=== PATIENT | male | born 1945 | race African-American/Black ===

== ENCOUNTER 2018-03-03 13:52 | Inpatient (IN) | payer BC, MEDICARE ==
[2018-03-03 14:47] LABS: #Eosinphils 0.2 thou/uL (0.0-0.7); #Lymphocytes 1.4 thou/uL (1.20-3.40); #Monocytes 0.6 thou/uL (0.11-0.59); #Neutrophils 5.2 thou/uL (1.40-6.50); %Basophils 0.6 % (0.0-1.0); %Eosinophils 2.8 % (0.0-10.0); %Lymphocytes 18.4 % (21.0-51.0); %Monocytes 7.9 % (0.0-10.0); %Neutrophils 70.2 % (42.0-75.0); Hemoglobin 10.2 g/dL (14.0-18.0); Mean Corpuscular HGB CONC 31.5 g/dL (32.0-36.0); Mean Corpuscular Hemoglobin 26.9 pg (27.0-31.0); Mean Corpuscular Volume 85.3 fl (80.0-94.0); Platelet Count 219 thou/uL (130-400); RBC Distribution Width 14.9 % (11.5-14.5); Red Blood Cell (RBC) Count 3.78 mill/uL (4.70-6.10); White Blood Cell (WBC) Count 7.4 thou/uL (4.8-10.8)
--- NOTE | 2018-03-03 14:53 | RAD ---
PORTABLE CHEST: History: Chest pain. Comparison: 07-30-09 FINDINGS: Cardiomegaly with post op sternotomy change. There is vascular congestion. Interstitial prominence pereira ggests interstitial edema. Small effusions may be present. The right CP angle is not completely image d. IMPRESSION: Cardiomegaly with evidence of mild vascular congestion and interstitial edema. POS: [facility]
[2018-03-03 15:08] LABS: ALT (SGPT) 26 U/L (8-55); AST (SGOT) 19 U/L (5-34); Albumin 3.3 g/dL (3.4-4.8); Alkaline Phosphatase 139 U/L (40-150); Anion Gap 12 mmol/L (10-20); BUN (Urea Nitrogen) 53 mg/dL (8.4-25.7); Bilirubin, Total 0.5 mg/dL (0.2-1.2); Calc. Creatinine Clearance 0 mL/min (70-130); Calcium 8.8 mg/dL (7.8-10.44); Carbon Dioxide 25 mmol/L (23-31); Chloride 110 mmol/L (98-107); Estimated GFR-MDRD 30; Globulin 3.4 g/dL (2.4-3.5); Glucose 71 mg/dL (83-110); Potassium 5.8 mmol/L (3.5-5.1); Protein, Total 6.7 g/dL (5.8-8.1); Sodium 141 mmol/L (136-145)
[2018-03-03 15:13] LABS: CKMB 1.8 ng/mL (0-6.6)
[2018-03-03 15:16] LABS: Troponin I 1.505 ng/mL (< 0.028)
[2018-03-03] MEDS ORDERED: Zolpidem Tartrate 5 MG TAB PO PRN (15:41)
[2018-03-03] MEDS ORDERED: Nitroglycerin 0.4 MG TAB (25 Tab Bottle) SL PRN (15:45)
[2018-03-03 15:47] LABS: Bilirubin Negative (Negative); Blood, Urine Large (Negative); Clarity CLOUDY (Clear); Glucose, Urine (Dipstick) Negative (Negative); Leukocyte Small (Negative); Nitrite Negative (Negative); Protein, Urine (Dipstick) Trace mg/dL (Neg-Trace); Specific Gravity, Urine 1.007 (1.002-1.036); Urobilinogen 0.2 mg/dL (0.2-1.0)
[2018-03-03 15:49] LABS: Bacteria/HPF 3+ HPF (None Seen); Hyaline Casts/LPF 0-3 HYALINE CAST LPF (0-3 Hyaline); RBC/HPF GREATER THAN 50-TNTC HPF (0-3); Squamous Epithelial 0-3 HPF (0-3)
[2018-03-03] MEDS ORDERED: Nitroglycerin 50 MG/250 ML BOT 250 ML ONE (17:38)
--- NOTE | 2018-03-03 17:38 | HP ---
DATE OF ADMISSION: 03/03/2018 CHIEF COMPLAINT: Shortness of breath. HISTORY OF PRESENT ILLNESS: This is a 72-year-old male with a known past medical hi story of coronary artery disease and history of congestive heart failure. [facility] is a [facility]. He developed a sudden onset of shortness of breath which started yesterday associated with severe chest pain. The patient initially went to his primary care physician with his chest pain and had a troponin drawn over there which was 1.7. This was yesterday and because of the abnormal tropo mathieu levels, he was transferred to [facility]. The patient had a repeat troponin today it was 1.5, and the patient continued to have chest pain even with the nitro patch. The patient complains of pain of 7/10 intensity, is more intermittent and more on the right side of t he chest, associated with some nausea, but no vomiting. The patient denies having any abdominal pain , no nausea, no vomiting, no diarrhea, no constipation. No history of any sick contacts. The patien t had a chest x-ray in the ER, which showed evidence of venous congestion. He also had elevated BNP and all signs suggestive of congestive heart failure likely secondary to coronary artery disease, but patient being immobile and uses walker for ambulation. complaining of chest pain in the right preco rdium likely suggestive of pulmonary embolism. The patient was also noted to have worsening renal fu nctions today. PAST MEDICAL HISTORY: 1. Hypertension. 2. Dyslipidemia. 3. Smoking history. 4. History of type 2 diabetes mellitus, insulin-dependent. 5. History of chronic diastolic heart failure. 6. History of COPD. 7. History of diabetic peripheral neuropathy. 8. Chronic anemia. 9. Morbid obesity. PAST SURGICAL HISTORY: Lumbar laminectomy. The patient had a right below knee amputation. The allegra ent had CABG. FAMILY HISTORY: The patient has paternal family history of coronary artery disease and hypertension and also history of type 2 diabetes mellitus. SOCIAL HISTORY: The patient has a history of tobacco use. He drinks alcohol socially, but he quit d rinking since he was in the residential. ALLERGIES: No known drug allergies. REVIEW OF SYSTEMS: All 12 systems are reviewed with the patient thoroughly and found to be negative at this time, except the ones described in HPI . Constitutional: Weight loss or gain, sense of well -being, ability to conduct usual activities, exercise tolerance. Skin/Breast: Rash, itching, change s in hair growth or loss, nail changes, breast lumps, tenderness, swelling, nipple discharge. Eyes: Vision, double vision, tearing, blind spots, pain. ENT/Mouth: Headaches (location, time of onset, duration, precipitating factors), vertigo, lightheadedness, injury. Vision, double vision, tearing, b artemio spots, pain, nose bleeding, colds, obstruction, discharge, dental difficulties, gingival bleedin g, dentures, neck stiffness, pain, tenderness, masses in thyroid or other areas. Cardiovascular: Pr ecordial pain, substernal distress, palpitations, syncope, dyspnea on exertion, orthopnea, nocturnal paroxysmal dyspnea, edema, cyanosis, hypertension, heart murmurs, varicosities, phlebitis, claudicati on. Respiratory: Pain, shortness of breath, wheezing, stridor, cough, hemoptysis, fever or night sw eats. Gastrointestinal: Poor appetite, dysphagia, indigestion, abdominal pain, heartburn, eructatio n, nausea, vomiting, hematemesis, jaundice, constipation, or diarrhea, abnormal stools (dick-colored, tarry, bloody, greasy, foul smelling), flatulence, hemorrhoids, recent changes in bowel habits. Gen itourinary: Urgency, frequency, dysuria, nocturia, hematuria, polyuria, oliguria, unusual (or change in) color of urine, stones, hesitancy, change in size of stream, dribbling, acute retention or incon tinence, libido, potency. Musculoskeletal: Pain, swelling, redness or heat of muscles or joints, l imitation of motion, muscular weakness, atrophy, cramps. Neurologic/Psychiatric: Convulsions, para lyses, tremor, incoordination, paresthesias, difficulties with memory of speech, sensory or motor dis turbances, or muscular coordination (ataxia, tremor), emotional problems, anxiety, depression, previo us psychiatric care, unusual perceptions, hallucinations. Allergy/Immunologic: Skin rash, anemia, b leeding tendency, polydipsia, polyuria, intolerance to heat or cold. HOME MEDICATIONS: 1. Pantoprazole 40 mg p.o. daily. 2. Aspirin 325 mg p.o. daily. 3. Cilostazol 100 mg p.o. b.i.d. 4. Pantoprazole 40 mg p.o. daily. 5. Glyburide 5 mg p.o. daily. 6. Hydrocodone 5/325 mg p.o. daily. 7. Coreg 25 mg p.o. b.i.d. 8. Ferrous sulfate 325 mg p.o. b.i.d. 9. Gabapentin 300 mg p.o. b.i.d. 10. Hydralazine 50 mg p.o. b.i.d. 11. Isosorbide mononitrate 60 mg p.o. b.i.d. 12. Levemir 12 units subcutaneously b.i.d. 13. Nitroglycerin 0.4 mg sublingual every 5 minutes. 14. Simvastatin 40 mg p.o. at bedtime. PHYSICAL EXAMINATION: VITAL SIGNS: Blood pressures are 130/88, respiratory rate is 18, saturation 98% on 2 liters. GENERAL: The patient is seen lying in the bed supine, does not appear to be in acute distress at thi s time. He is alert and oriented x3. HEENT: Atraumatic, normocephalic. PERRLA. Extraocular movements are intact. Oral mucosa is pink a nd moist. CARDIOVASCULAR: S1, S2 normal. No murmurs, rubs or gallops. LUNGS: Bilateral air entry was reduced with wheezing and crackles noted in the lower bases, but othe rwise no acute signs of respiratory distress. ABDOMEN: Distended, nontender, no guarding, no rebound tenderness. Bowel sounds were normal. MUSCULOSKELETAL: The patient has pedal edema on the left lower extremity, 3+ edema with no calf ten derness, no joint tenderness, no joint swelling. Right lower extremity has a below knee amputation, but it looked normal with no evidence of any infection or cellulitis. JEWELRY SALES: Cranial nerve examination II-XII intact. No focal deficits were noted. SKIN: No cyanosis, no edema, no rash, no pallor. PSYCHIATRIC: No signs of suicidal ideation or signs of ana. LABORATORY DATA: WBC 7.4, hemoglobin is 10.2, hematocrit is 32.3, platelets is 219. His sodium is 141, potassium 5.8, chloride is 110, BUN 53, creatinine 2.54, blood sugar 71. Troponin is 1.505. A chest x-ray has been reviewed by me, it did show evidence of venous congestion suggestive of conges tive heart failure. ASSESSMENT: 1. Bsv-TG-gbygomj elevation myocardial infarction. 2. Acute diastolic congestive heart failure. 3. Acute hyperkalemia. 4. Acute kidney injury on chronic kidney disease. 5. Type 2 diabetes mellitus, insulin-dependent. 6. Morbid obesity. 7. Possible pulmonary embolism. 8. Acute hypoxic respiratory failure. PLAN: 1. The plan is to closely monitor this patient. The patient is pretty high risk. is FULL CODE. Fol grace discussion today, he has a worsening troponins today, it was 1.5. Either it could be secondar y to non-clearance because of the worsening renal functions or it could be a new IL. The patient's E KG was normal. This has been reviewed by me and the ER physician. The patient is on aspirin. We wi ll continue with aspirin and beta ashish of Coreg to 25 b.i.d. I advised the ER physician to call t he Cardiology as the patient is not able to recollect goals of Cardiology. As the patient is having ongoing chest pain at this time, will follow up with the Cardiology recommendations. We will do a 2- D echo to look for any evidence of wall motion abnormality. We will start the patient on Lovenox 1 m g/kg, as the patient has worsening renal functions. 2. The patient has persistent chest pain, which is more on the right precordium. Need to rule out a ny evidence of pulmonary embolism as the patient has immobile status. We will do ultrasound of the l eft lower extremity to look for any evidence of a DVT contributing to the pulmonary embolism. 3. The patient has hyperkalemia likely from worsening renal functions. We will avoid XAVIER inhibitor at this time. We will treat with Kayexalate 30 grams p.o. We will consult Nephrology at this time. 4. Type 2 diabetes mellitus. The patient has worsening renal function, so we will hold off on the g lipizide at this time and will continue the patient on Levemir and sliding scale insulin to keep the blood sugars 140-180. 5. Code status has been discussed with the patient and he wants to remain as a FULL CODE at this danny e and discussed all the events of CPR and intubation and I spent 25 minutes with this patient regardi ng the code status, but at this point he wants to be a FULL CODE. I spent 75 minutes with this patie nt of this one hour of critical care time.
--- NOTE | 2018-03-03 17:54 | ULT ---
LEFT LOWER EXTREMITY VENOUS DOPPLER 03/03/18 HISTORY: Left lower extremity swelling. COMPARISON: Doppler 2013. TECHNIQUE: Real time corley scale color doppler and spectral analysis of the left lower extremity venous system wa s performed. the common femoral, femoral, proximal portion of the greater saphenous and deep femoral vein as well as the popliteal and posterior tibial veins were interrogated. Normal flow, augmentation and compression. IMPRESSION: No deep venous thrombosis. POS: [facility]
[2018-03-03] MEDS ORDERED: Acetaminophen 325 MG TAB PO PRN (18:44)
[2018-03-03] MEDS ORDERED: HumaLOG 300 UNITS/3 ML VIAL SC PRN ×2 (18:44)
[2018-03-03] MEDS ORDERED: HYDROcodone/Acetaminophen 5/325 mg Tablet PO PRN (18:44)
[2018-03-03] MEDS ORDERED: Dextrose 5% in Water 1,000 ML IV PRN (18:44)
[2018-03-03] MEDS ORDERED: Ondansetron ODT 4 MG TAB PO PRN (18:44)
[2018-03-03] MEDS ORDERED: Dextrose 50% Abboject 50 ML SYRINGE SLOW IVP PRN (18:44)
[2018-03-03 18:52] LABS: Critical Call Chem Troponin I RESULT DECREASING; Troponin I 1.475 ng/mL (< 0.028)
[2018-03-03] MEDS: Mometasone/Formoterol 120 PUFF INHALER INH SCH (19:26)
[2018-03-03 19:30] LABS: Critical Call Chem Troponin I RESULT DECREASING; Troponin I 1.466 ng/mL (< 0.028)
[2018-03-03] MEDS ORDERED: Non-Formulary Item 1 EACH (Levemir Flexpen [Levemir Flexpen] 12 UNIT) SC SCH (21:00)
[2018-03-03] MEDS ORDERED: Carvedilol 25 MG TAB PO SCH (21:00)
[2018-03-03] MEDS: Gabapentin 300 MG CAP PO SCH (21:04)
[2018-03-03] MEDS: hydrALAZINE 25 MG TAB PO SCH (21:07)
[2018-03-03] MEDS: Tamsulosin HCl 0.4 MG CAP PO SCH (21:07)
[2018-03-03] MEDS: Famotidine 20 MG TAB PO SCH (21:07)
[2018-03-03] MEDS: Nitroglycerin 2% Ointment 1 INCH/1 GM Packet TOP SCH (21:08)
[2018-03-03] MEDS: Atorvastatin Calcium 20 MG TAB PO SCH (21:08)
[2018-03-03] MEDS: Enoxaparin Sodium 80 MG/0.8 ML SYRINGE SC SCH (21:08)
[2018-03-03] MEDS: Carvedilol 25 MG TAB PO SCH (21:08)
[2018-03-03 21:32] LABS: Troponin I 1.486 ng/mL (< 0.028)
[2018-03-03] MEDS: Insulin Glargine 12 UNITS in Pre-Filled Syringe 1 EACH SC SCH (22:03)
--- NOTE | 2018-03-03 22:38 | CON ---
DATE OF CONSULT/CRITICAL CARE NOTE: 03/03/18 Time on it: 40 minutes. HISTORY OF PRESENT ILLNESS: The patient is a 72-year-old gentleman who presented with right-sided chest discomfort. The patient has a long history of coronary artery disease and peripheral vascular disease. The patient is status post coronary catheterization The patient is status post coronary bypass graft surgery in 2008. He had a saphenous vein graft placed to the ramus saphenous vein graft to the proximal OM and the distal OM. The PDA was not bypassable. The patient also has a history of peripheral vascular disease. He has undergone a right AKA. The patient states that he has been having right-sided chest discomfort for the past several weeks. This chest discomfort was relieved by sublingual nitroglycerin. Today, the patient took several nitroglycerin tablets without relief of his chest pain. The patient denies having any present chest discomfort. PAST MEDICAL HISTORY: 1. Coronary artery disease. 2. Hypertension. 3. Diabetes mellitus. PAST SURGICAL HISTORY: He has had coronary artery bypass surgery and back surgery. SOCIAL HISTORY: He is a nonsmoker. ALLERGIES: No known drug allergies. MEDICATIONS ON ADMISSION: See nursing list. PHYSICAL EXAMINATION: GENERAL: This is an ill-appearing gentleman with a blood pressure 140/70. NECK: Showed no jugular venous distention. LUNGS: Clear to auscultation. HEART: Regular rate and rhythm, normal S1, S2 with no murmurs. ABDOMEN: Distended. EXTREMITIES: He is status post right BKA. LABORATORY: Sodium 141, potassium 5.8, chloride 110, bicarbonate 25, BUN 53, creatinine 2.54, tropon in 1.5. BNP was 3417. His white blood count 7.4, hemoglobin 10.2, hematocrit 32.3, platelets are 21 9. His EKG reveals normal sinus rhythm with a prolonged first degree AV block, right bundle branch b lock and left anterior fascicular block. IMPRESSION: 1. Unstable angina. 2. Possible recent myocardial infarction. 3. Diabetes mellitus. 4. Hypertension. 5. Peripheral vascular disease. 6. History of coronary bypass surgery. This gentleman presents with right-sided chest pain that respond to nitroglycerin. He has an elevate d troponin level with a normal CPK MB may have suffered a previous myocardial infarction. The patien t will be monitored in the ICU, he will treated with IV nitroglycerin. The patient has evidence of h ematuria so his aspirin is being held. Would slowly decrease the dose of his beta ashish with his s evere conduction disease. The patient's prognosis is guarded. We will follow this patient with you through his hospitalization.
[2018-03-04 04:11] LABS: #Eosinphils 0.2 thou/uL (0.0-0.7); #Lymphocytes 1.4 thou/uL (1.20-3.40); #Monocytes 0.5 thou/uL (0.11-0.59); #Neutrophils 4.8 thou/uL (1.40-6.50); %Basophils 0.1 % (0.0-1.0); %Eosinophils 3.2 % (0.0-10.0); %Lymphocytes 20.2 % (21.0-51.0); %Monocytes 7.8 % (0.0-10.0); %Neutrophils 68.9 % (42.0-75.0); Hemoglobin 9.3 g/dL (14.0-18.0); Mean Corpuscular HGB CONC 31.4 g/dL (32.0-36.0); Mean Corpuscular Hemoglobin 26.7 pg (27.0-31.0); Mean Corpuscular Volume 85.1 fl (80.0-94.0); Mean Platelet Volume 9.1 fL (7.4-10.4); Platelet Count 223 thou/uL (130-400); RBC Distribution Width 14.9 % (11.5-14.5); Red Blood Cell (RBC) Count 3.47 mill/uL (4.70-6.10)
[2018-03-04 04:30] LABS: Anion Gap 10 mmol/L (10-20); BUN (Urea Nitrogen) 52 mg/dL (8.4-25.7); Calc. Creatinine Clearance 39 mL/min (70-130); Calcium 8.4 mg/dL (7.8-10.44); Carbon Dioxide 24 mmol/L (23-31); Cardiac Risk 3.9 (Less than 4.5); Chloride 110 mmol/L (98-107); Cholesterol 117 mg/dl (< 200 Desired); Estimated GFR-MDRD 34; Glucose 100 mg/dL (83-110); HDL Cholesterol 30 mg/dL (>60 Neg Risk); LDL Cholesterol, Calculated 69 mg/dL; Potassium 4.8 mmol/L (3.5-5.1); Sodium 139 mmol/L (136-145); Triglycerides 88 mg/dL (Less than 150)
[2018-03-04] MEDS: Nitroglycerin 2% Ointment 1 INCH/1 GM Packet TOP SCH ×3 (05:13→21:25)
[2018-03-04] MEDS: Furosemide 20 MG/2 ML VIAL SLOW IVP SCH ×2 (05:15→15:22)
[2018-03-04] MEDS: hydrALAZINE 25 MG TAB PO SCH ×2 (07:41→21:25)
[2018-03-04] MEDS: Gabapentin 300 MG CAP PO SCH ×2 (07:41→21:23)
[2018-03-04] MEDS: Aspirin 325 MG TAB PO SCH (07:41)
[2018-03-04] MEDS: Ferrous Sulfate 325 MG TAB PO SCH ×2 (07:41→17:48)
[2018-03-04] MEDS: Carvedilol 25 MG TAB PO SCH ×2 (07:42→21:23)
[2018-03-04] MEDS: Enoxaparin Sodium 80 MG/0.8 ML SYRINGE SC SCH ×2 (07:44→21:23)
[2018-03-04] MEDS: Mometasone/Formoterol 120 PUFF INHALER INH SCH ×2 (07:50→22:10)
[2018-03-04 11:02] VITALS: BMI 32.1
[2018-03-04] MEDS: Insulin Glargine 12 UNITS in Pre-Filled Syringe 1 EACH SC SCH ×2 (11:41→21:30)
--- NOTE | 2018-03-04 12:34 | CON ---
DATE OF CONSULTATION: 03/04/2018 HISTORY OF PRESENT ILLNESS: This is a 72-year-old gentleman that I have evaluated previously for per ipheral vascular disease. He was admitted at this time with chest pain, elevated troponin, elevated BNP, suggesting PR, and congestive heart failure. His symptoms began yesterday and he was admitted y esterday evening. He states that he has been in the snf for several years. Although, he do es have an artificial limb that he does wear, he does not ambulate with it, but just uses it for contreras sferring from bed to chair. PAST MEDICAL HISTORY: Includes, hypertension, dyslipidemia, diabetes mellitus, heart disease, COPD, chronic anemia, and chronic kidney disease stage 4. PAST SURGICAL HISTORY: Includes lumbar laminectomy, right ueypr-aog-lvls amputation, coronary bypass grafting with incomplete right revascularization after reviewing those surgical notes. The patient also had a stent placement in his right external iliac artery and his left superficial fe moral artery. He has known single vessel runoff in his left leg via the peroneal artery. Prior to s tenting the left superficial femoral artery, it was completely occluded. PHYSICAL EXAMINATION: GENERAL: The patient is resting comfortably in bed with no complaints. LUNGS: Clear to auscultation anteriorly. CARDIAC: Exam reveals a regular rate and rhythm. No murmurs. ABDOMEN: Obese, nontender. EXTREMITIES: He has palpable femoral pulses bilaterally. He has a well-healed right BKA stump with no breakdown. Left leg has no popliteal or pedal pulses by exam. He has no skin breakdown in his le ft foot that I can appreciate. PLAN: At this time, the patient will probably be treated medically given his very poor coronary targ ets at the time of bypass about 9 years ago. He may be in atrial flutter with a controlled rate and has had some bradycardia and this will be addressed by Cardiology. In regards to his peripheral vasc ular disease, no intervention is recommended at this time.
--- NOTE | 2018-03-04 13:42 | CON ---
DATE OF CONSULTATION: 03/04/2018 CONSULTING PHYSICIAN: [facility] REASON FOR CONSULTATION: ICU protocol. HISTORY OF PRESENT ILLNESS: This is a 72-year-old male who presented yesterday with intractable ches t pain consistent with unstable angina. He also had congestive heart failure. He was then placed in the ICU, has been seen by both Cardiology and Cardiovascular Surgery. He has significantly elevated BNP and a slightly elevated troponin level. PAST MEDICAL HISTORY: 1. Remarkable for coronary artery disease. 2. Hypertension. 3. Diabetes mellitus. 4. Peripheral vascular disease. PAST SURGICAL HISTORY: 1. He has had a right bpuxs-ysq-bjhb amputation. 2. Back surgery. 3. Coronary bypass grafting surgery. FAMILY MEDICAL HISTORY: Remarkable for coronary artery disease, hypertension, type 2 diabetes mellit us. SOCIAL HISTORY: Quit smoking about 7 years ago. He lives in a residential since, therefore last 4 to 5 years because he has no one at home to take care of him, used to drink alcohol, has never used i llicit drugs. ALLERGIES: None. MEDICATIONS PRIOR TO ADMISSION: Albuterol metered-dose inhaler as needed, omeprazole 40 mg daily, fl uticasone nasal spray 2 squirts each nostril twice daily, fluoxetine 60 mg daily, cholecalciferol 100 0 units daily, calcium carbonate with vitamin D3 one tablet daily, Rocaltrol 0.25 mcg daily, aspirin 81 mg daily, Coreg 25 mg b.i.d., Neurontin 300 mg b.i.d., hydralazine 50 mg t.i.d., tamsulosin 0.4 mg nightly, simvastatin 40 mg nightly, nitroglycerin as needed sublingually, Levemir insulin 20 units s ubcu b.i.d., isosorbide 60 mg daily. PHYSICAL EXAMINATION: VITAL SIGNS: Pulse 63, blood pressure 159/63, O2 sat 100%, respiratory rate 14, temperature 98.3. GENERAL: He is an elderly white male in no acute distress. HEENT: Unremarkable. NECK: No JVD, no carotid bruits. LUNGS: A few crackles in both bases. CARDIAC: S1, S2 regular, without murmur. ABDOMEN: Soft, nontender, nondistended. EXTREMITIES: Right poewt-ilt-mwwm amputation. LABORATORY DATA AND X-RAY FINDINGS: Sodium 139, potassium 4.8, chloride 110, CO2 of 24, BUN 52, crea tinine 2.3, glucose 100. BNP 3000. White blood cell count 7, hematocrit 29.5, platelet count 223. Chest x-ray demonstrates cardiomegaly, bilateral infiltrative changes, perhaps left effusion. The an gle was obscured by the heart size. ASSESSMENT: 1. Unstable angina. 2. Coronary artery disease. 3. Congestive heart failure. PLAN: The patient is on no drips that would necessitate him being in the ICU. He can be moved out t o telemetry. Agree with current management. Pulmonary will be available as needed for issues.
--- NOTE | 2018-03-04 16:02 | PDOC.PN ---
- Subjective Encounter Start Date: 03/04/18 Encounter Start Time: 14:00 Anusha is seen today, alert and oriented. He is here with Chest pain/ SOB with elevated Trop. - Objective Resuscitation Status: Resuscitation Status FULL:Full Resuscitation MAR Reviewed: Yes Vital Signs & Weight: Vital Signs (12 hours) Temp Pulse Pulse Pulse Resp BP BP 03/04/18 11:00 98.2 F 03/04/18 09:00 69 86 150/51 H 135/65 03/04/18 08:00 98.3 F 63 17 03/04/18 07:00 98.3 F Pulse Ox Pulse Ox Pulse Ox 03/04/18 11:00 03/04/18 09:00 100 100 03/04/18 08:00 96 03/04/18 07:00 Weight Admit Weight 211 lb Weight 211 lb 2.4 oz Most Recent Monitor Data Heart Rate from ECG 70 NIBP 118/49 NIBP BP-Mean 85 Respiration from ECG 18 SpO2 100 I&O: 03/03/18 03/04/18 03/05/18 06:59 06:59 06:59 Intake Total 400 240 Output Total 1515 1380 Balance -1115 -1140 Result Diagrams: 03/04/18 03:33 03/04/18 03:33 Additional Labs: Accuchecks 03/03/18 20:44 POC Glucose 188 H Radiology Reviewed by me: Yes EKG Reviewed by me: Yes Phys Exam - Physical Examination HEENT: PERRLA, moist MMs Neck: no nodes, no JVD Respiratory: wheezing present Cardiovascular: RRR, no significant murmur Gastrointestinal: soft, non-tender Musculoskeletal: edema present Neurological: non-focal Lymphatic: no nodes Psychiatric: normal affect, A&O x 3 Dx/Plan (1) NSTEMI (non-ST elevated myocardial infarction) Code(s): I21.4 - NON-ST ELEVATION (NSTEMI) MYOCARDIAL INFARCTION Status: Acute Comment: Cardiology following, will continue to Monitor, No chest pain today, Pt on lovenox 1mg/kg renal dosed. Aspirin/ BB/ Statin. (2) Acute diastolic CHF (congestive heart failure), NYHA class 3 Code(s): I50.31 - ACUTE DIASTOLIC (CONGESTIVE) HEART FAILURE Status: Acute Comment: Echo pending, Continue on IV lasix, Will continue Home MEds. will do ACEI if EF <40% (3) Acute respiratory failure with hypoxia Code(s): J96.01 - ACUTE RESPIRATORY FAILURE WITH HYPOXIA Status: Acute Comment: Improving with IV lasix. Will clsoley monitor. (4) coronary artery disease Status: Acute (5) Cardiorenal syndrome with renal failure Code(s): I13.10 - HYP HRT & CHR KDNY DIS W/O HRT FAIL, W STG 1-4/UNSP CHR KDNY; N19 - UNSPECIFIED KIDNEY FAILURE Status: Acute Comment: Improving renal fucntions with IV lasix, will laurelley Monitor, consulted nephrology. (6) Hyperkalemia Code(s): E87.5 - HYPERKALEMIA Status: Acute Comment: Resolved with kayxalate. - Plan cont current plan of care, PT/OT, clinical social work therapist, respiratory therapy, incentive spirometry, DVT proph w/lovenox * . Review of Systems - Review of Systems Constitutional: weakness Eyes: negative: Pain, Vision Change, Conjunctivae Inflammation, Eyelid Inflammation, Redness, Other Respiratory: Cough, Shortness of Breath, SOB with Excertion, Wheezing. negative : Dry, Hemoptysis, Pleuritic Pain, Sputum Cardiovascular: chest pain, orthopnea, paroxysmal nocturnal dyspnea Gastrointestinal: Nausea, Vomiting, Abdominal Pain, Diarrhea, Constipation, Melena, Hematochezia, Other Musculoskeletal: Neck Pain, Shoulder Pain, Arm Pain, Back Pain, Hand Pain, Leg Pain, Foot Pain, Other - Medications/Allergies Allergies/Adverse Reactions: Allergies Allergy/AdvReac Type Severity Reaction Status Date / Time No Known Drug Allergies Allergy Verified 12/03/13 22:24 Medications: Current Medications Acetaminophen (Tylenol) 650 mg PO Q4H PRN PRN Reason: Headache/Fever or Pain Hydrocodone Bitart/Acetaminophen ([place] 5/325) 1 tab PO Q4H PRN PRN Reason: Moderate Pain (4-6) Aspirin (Aspirin) 325 mg PO DAILY COUNTS INCLUDE 234 BEDS AT THE [facility] Last Admin: 03/04/18 07:41 Dose: 325 mg Atorvastatin Calcium (Lipitor) 20 mg PO HS COUNTS INCLUDE 234 BEDS AT THE [facility] Last Admin: 03/03/18 21:08 Dose: 20 mg Carvedilol (Coreg) 12.5 mg PO BID COUNTS INCLUDE 234 BEDS AT THE [facility] Last Admin: 03/04/18 07:42 Dose: 12.5 mg Dextrose/Water (Dextrose 50%) 25 gm SLOW IVP PRN PRN PRN Reason: Hypoglycemia Enoxaparin Sodium (Lovenox) 80 mg SC 0900,2100 COUNTS INCLUDE 234 BEDS AT THE [facility] Last Admin: 03/04/18 07:44 Dose: 80 mg Famotidine (Pepcid) 20 mg PO 2100 COUNTS INCLUDE 234 BEDS AT THE [facility] Last Admin: 03/03/18 21:07 Dose: 20 mg Ferrous Sulfate (Feosol) 325 mg PO BID-WM COUNTS INCLUDE 234 BEDS AT THE [facility] Last Admin: 03/04/18 07:41 Dose: 325 mg Furosemide (Lasix) 20 mg SLOW IVP 0600,1400 COUNTS INCLUDE 234 BEDS AT THE [facility] Last Admin: 03/04/18 15:22 Dose: 20 mg Gabapentin (Neurontin) 300 mg PO BID COUNTS INCLUDE 234 BEDS AT THE [facility] Last Admin: 03/04/18 07:41 Dose: 300 mg Glucagon (Glucagon) 1 mg IM PRN PRN PRN Reason: Hypoglycemia Hydralazine HCl (Apresoline) 50 mg PO BID COUNTS INCLUDE 234 BEDS AT THE [facility] Last Admin: 03/04/18 07:41 Dose: 50 mg Insulin Glargine 12 units/ (Miscellaneous Medication) 0.12 mls @ 0 mls/hr SC BID COUNTS INCLUDE 234 BEDS AT THE [facility] Last Admin: 03/04/18 11:41 Dose: Not Given Dextrose/Water (D5w) 1,000 mls @ 0 mls/hr IV .Q0M PRN; As Directed PRN Reason: Hypoglycemia Insulin Human Lispro (Humalog) 0 units SC .MODERATE SLIDING SC PRN PRN Reason: Moderate Correctional Scale Insulin Human Lispro (Humalog) 0 units SC .BEDTIME SLIDING SC PRN PRN Reason: Bedtime Correctional Scale Isosorbide Mononitrate (Imdur) 60 mg PO BID COUNTS INCLUDE 234 BEDS AT THE [facility] Last Admin: 03/04/18 07:41 Dose: 60 mg Mometasone Furoate/Formoterol Fumar (Dulera 200 Mcg/5 Mcg Inhaler) 2 puff INH BID-RT COUNTS INCLUDE 234 BEDS AT THE [facility] Last Admin: 03/04/18 07:50 Dose: 2 puff Nitroglycerin (Nitrostat) 0.4 mg SL Q5MIN PRN PRN Reason: Chest Pain Nitroglycerin (Nitro-Bid 2% Ointment) 0.5 inch TOP Q8HR COUNTS INCLUDE 234 BEDS AT THE [facility] Last Admin: 03/04/18 15:22 Dose: 0.5 inch Ondansetron HCl (Zofran Odt) 4 mg PO Q6H PRN PRN Reason: Nausea/Vomiting Tamsulosin HCl (Flomax) 0.4 mg PO HS COUNTS INCLUDE 234 BEDS AT THE [facility] Last Admin: 03/03/18 21:07 Dose: 0.4 mg Zolpidem Tartrate (Ambien) 5 mg PO HSPRN PRN PRN Reason: Insomnia
--- NOTE | 2018-03-04 19:41 | CON ---
DATE OF CONSULTATION: 03/04/2018 CONSULTING PHYSICIAN: Kemal Renee MD REASON FOR CONSULTATION: Acute kidney injury, hyperkalemia. REASON FOR ADMISSION: Shortness of breath. HISTORY OF PRESENT ILLNESS: This is a 72-year-old male with history of hypertension, hyperlipidemia, type 2 diabetes, COPD, CKD, came to the hospital with shortness of breath and being evaluated. His creatinine was found to be 2.5. His baseline creatinine ranges around 2.4 to 2.6. He was also hyperkalemic at 5.8, but at 4.8 this morning. He was started on Lasix. Patient is feeli ng better, still not able to give good history. No nausea, vomiting. No fever or chills. PAST MEDICAL HISTORY: Positive for hypertension, hyperlipidemia, type 2 diabetes, CHF, COPD, CKD. PAST SURGICAL HISTORY: Lumbar surgery. HOME MEDICATIONS: Protonix, aspirin, cilostazol, pantoprazole, glyburide, hydrocodone, Coreg, ferrou s sulfate, gabapentin, hydralazine, isosorbide mononitrate, Levemir, nitroglycerin, simvastatin. ALLERGIES: No known drug allergies. SOCIAL HISTORY: Denies any smoking, alcohol, or drug abuse. FAMILY HISTORY: No significant history of kidney disease. REVIEW OF SYSTEMS: The following complete review of systems was negative, unless otherwise mentioned in the HPI or below: Constitutional: Weight loss or gain, ability to conduct usual activities. Sk in: Rash, itching. Eyes: Double vision, pain. ENT/Mouth: Nose bleeding, neck stiffness, pain, te nderness. Cardiovascular: Palpitations, dyspnea on exertion, orthopnea. Respiratory: Shortness of breath, wheezing, cough, hemoptysis, fever or night sweats. Gastrointestinal: Poor appetite, abdom inal pain, heartburn, nausea, vomiting, constipation, or diarrhea. Genitourinary: Urgency, frequenc y, dysuria, nocturia. Musculoskeletal: Pain, swelling. Neurologic/Psychiatric: Anxiety, depressio n. Allergy/Immunologic: Skin rash, bleeding tendency. PHYSICAL EXAMINATION: GENERAL: This is a well-built male in no apparent distress. VITAL SIGNS: Temperature 98.2, pulse 62, respiratory rate 15, and blood pressure 157/52. HEENT: Atraumatic, normocephalic. Oral mucosa is moist. NECK: Supple, no masses. CARDIOVASCULAR: S1, S2 heard. Rate and rhythm regular. RESPIRATORY: Clear. ABDOMEN: Soft. MUSCULOSKELETAL: No tenderness. No edema. DERMATOLOGIC: No skin rash. NEUROLOGIC: Alert, awake. PSYCHIATRIC: Normal. LABORATORY: Hemoglobin is 9.3. Potassium is 4.8, BUN is 52, creatinine is 2.3. ASSESSMENT AND PLAN: 1. Acute kidney injury. Renal function is stable, close to his baseline. 2. Hyperkalemia, better. 3. Edema. 4. Cardiorenal syndrome. 5. Hypertension. 6. Anemia, monitor, rule out. 7. Overall, renal function is stable. We will monitor. Avoid nephrotoxins.
[2018-03-04] MEDS: Atorvastatin Calcium 20 MG TAB PO SCH (21:23)
[2018-03-04] MEDS: Tamsulosin HCl 0.4 MG CAP PO SCH (21:23)
[2018-03-04] MEDS: Famotidine 20 MG TAB PO SCH (21:24)
[2018-03-05 04:58] LABS: Anion Gap 11 mmol/L (10-20); BUN (Urea Nitrogen) 47 mg/dL (8.4-25.7); Calc. Creatinine Clearance 36 mL/min (70-130); Calcium 8.5 mg/dL (7.8-10.44); Carbon Dioxide 27 mmol/L (23-31); Chloride 108 mmol/L (98-107); Estimated GFR-MDRD 31; Glucose 78 mg/dL (83-110); Potassium 4.3 mmol/L (3.5-5.1); Sodium 142 mmol/L (136-145)
[2018-03-05] MEDS: Nitroglycerin 2% Ointment 1 INCH/1 GM Packet TOP SCH ×3 (06:12→21:14)
[2018-03-05] MEDS: Furosemide 20 MG/2 ML VIAL SLOW IVP SCH ×2 (06:12→14:59)
[2018-03-05] MEDS: hydrALAZINE 25 MG TAB PO SCH ×2 (07:40→21:14)
[2018-03-05] MEDS: Aspirin 325 MG TAB PO SCH (07:40)
[2018-03-05] MEDS: Ferrous Sulfate 325 MG TAB PO SCH ×2 (07:40→17:43)
[2018-03-05] MEDS: Carvedilol 25 MG TAB PO SCH ×2 (07:40→21:14)
[2018-03-05] MEDS: Gabapentin 300 MG CAP PO SCH ×2 (07:40→21:14)
[2018-03-05] MEDS: Enoxaparin Sodium 80 MG/0.8 ML SYRINGE SC SCH (10:29)
[2018-03-05] MEDS: Insulin Glargine 12 UNITS in Pre-Filled Syringe 1 EACH SC SCH ×2 (10:30→22:01)
--- NOTE | 2018-03-05 11:45 | PRG ---
DATE OF SERVICE: 03/05/2018 SUBJECTIVE: A 72-year-old male being seen for acute kidney injury. The patient denies any nausea, v omiting, or chest pain. PHYSICAL EXAMINATION: GENERAL: Patient is awake, alert. VITAL SIGNS: Afebrile, pulse 75, breathing 16, blood pressure 125/56. HEAD/NECK: Normocephalic. Atraumatic. EYES: EOMI. No deformity. EARS: Clear. No ulcers. NOSE: Intact. No lesions. MOUTH: Clear. No discharge. THROAT: Clear. No exudate. LUNGS: Clear. No crackles. CARDIAC: S1, S2. No rub. ABDOMEN: Benign. BS+. GENITALIA/RECTUM: Bernal absent. BACK/EXTREMITIES: Edema 0+ Ulcer- NEUROLOGICAL: Alert and motor intact. SKIN: Rash- Bruise- LYMPHATICS: Edema- Ulcer- LABORATORY DATA: Show hemoglobin 9.3 and creatinine 2.5. ASSESSMENT AND PLAN: 1. Acute kidney injury with chronic kidney disease stage 3, stable. 2. Hypertension, stable. 3. Anemia, stable. 4. Metabolic acidosis, stable. 5. Medication based on GFR. I would recommend changing Lovenox to regular unfractionated heparin.
--- NOTE | 2018-03-05 14:08 | PDOC.PN ---
- Subjective Encounter Start Date: 03/05/18 Encounter Start Time: 11:00 Patient is seen today,k alert and oriented. No chest pain noted, pt is feeling better, he is admitted with worseing Chest pain with CAd. Cardiology suggesting medical management - Objective Resuscitation Status: Resuscitation Status FULL:Full Resuscitation MAR Reviewed: Yes Vital Signs & Weight: Vital Signs (12 hours) Temp Pulse Pulse Pulse Pulse Resp BP 03/05/18 11:00 98.6 F 03/05/18 10:30 71 64 70 158/70 H 03/05/18 07:43 97.6 F 79 17 03/05/18 07:00 97.6 F 03/05/18 04:00 98.7 F BP BP Pulse Ox Pulse Ox Pulse Ox Pulse Ox 03/05/18 11:00 03/05/18 10:30 124/49 L 136/87 100 99 98 03/05/18 07:43 100 03/05/18 07:00 03/05/18 04:00 Weight Admit Weight 211 lb Weight 201 lb 8.04 oz Most Recent Monitor Data Heart Rate from ECG 67 NIBP 117/49 NIBP BP-Mean 67 Respiration from ECG 12 SpO2 100 I&O: 03/04/18 03/05/18 03/06/18 06:59 06:59 06:59 Intake Total 400 900 480 Output Total 1515 3180 1505 [facility]1115 -2650 -1025 Result Diagrams: 03/04/18 03:33 03/05/18 04:15 Additional Labs: Accuchecks 03/05/18 03/05/18 03/05/18 11:31 06:49 06:10 POC Glucose 112 H 84 69 L 03/04/18 03/04/18 03/04/18 21:31 17:32 11:35 POC Glucose 174 H 124 H 88 Radiology Reviewed by me: Yes Phys Exam - Physical Examination HEENT: PERRLA, moist MMs Neck: no nodes, no JVD Respiratory: no wheezing, no rales Cardiovascular: RRR, no significant murmur Gastrointestinal: soft, non-tender Musculoskeletal: no edema, pulses present Neurological: non-focal, normal sensation Psychiatric: normal affect, A&O x 3 Skin: no rash, normal turgor Dx/Plan (1) NSTEMI (non-ST elevated myocardial infarction) Code(s): I21.4 - NON-ST ELEVATION (NSTEMI) MYOCARDIAL INFARCTION Status: Acute Comment: Cardiology following, will continue to Monitor, No chest pain today, Pt on lovenox 1mg/kg renal dosed. Aspirin/ BB/ Statin. No intervention per cardiology, Will lopez Monitor. with do PT/oT evaaluition, (2) Acute diastolic CHF (congestive heart failure), NYHA class 3 Code(s): I50.31 - ACUTE DIASTOLIC (CONGESTIVE) HEART FAILURE Status: Acute Comment: Echo pending, Continue on IV lasix, Will continue Home MEds. will do ACEI if EF <40% (3) Acute respiratory failure with hypoxia Code(s): J96.01 - ACUTE RESPIRATORY FAILURE WITH HYPOXIA Status: Acute Comment: Improving with IV lasix. Will clsoley monitor. (4) coronary artery disease Status: Acute (5) Cardiorenal syndrome with renal failure Code(s): I13.10 - HYP HRT & CHR KDNY DIS W/O HRT FAIL, W STG 1-4/UNSP CHR KDNY; N19 - UNSPECIFIED KIDNEY FAILURE Status: Acute Comment: Improving renal fucntions with IV lasix, will laurelley Monitor, consulted nephrology. (6) Hyperkalemia Code(s): E87.5 - HYPERKALEMIA Status: Acute Comment: Resolved with kayxalate. - Plan cont current plan of care, mcneill catheter, PT/OT, marriage and family social worker, respiratory therapy, incentive spirometry, out of bed/ambulate, DVT proph w/lovenox Plan to discharge Home on Wednesday Review of Systems - Review of Systems Eyes: negative: Pain, Vision Change, Conjunctivae Inflammation, Eyelid Inflammation, Redness, Other ENT: negative: Ear Pain, Ear Discharge, Nose Pain, Nose Discharge, Nose Congestion, Mouth Pain, Mouth Swelling, Throat Pain, Throat Swelling, Other Respiratory: negative: Cough, Dry, Shortness of Breath, Hemoptysis, SOB with Excertion, Pleuritic Pain, Sputum, Wheezing Cardiovascular: negative: chest pain, palpitations, orthopnea, paroxysmal nocturnal dyspnea, edema, light headedness, other Gastrointestinal: negative: Nausea, Vomiting, Abdominal Pain, Diarrhea, Constipation, Melena, Hematochezia, Other Musculoskeletal: negative: Neck Pain, Shoulder Pain, Arm Pain, Back Pain, Hand Pain, Leg Pain, Foot Pain, Other Skin: negative: Rash, Lesions, Joe, Bruising, Other Neurological: negative: Weakness, Numbness, Incoordination, Change in Speech, Confusion, Seizures, Other - Medications/Allergies Allergies/Adverse Reactions: Allergies Allergy/AdvReac Type Severity Reaction Status Date / Time No Known Drug Allergies Allergy Verified 12/03/13 22:24 Medications: Current Medications Acetaminophen (Tylenol) 650 mg PO Q4H PRN PRN Reason: Headache/Fever or Pain Hydrocodone Bitart/Acetaminophen ([place] 5/325) 1 tab PO Q4H PRN PRN Reason: Moderate Pain (4-6) Last Admin: 03/05/18 00:34 Dose: 1 tab Aspirin (Aspirin) 325 mg PO DAILY [facility] Last Admin: 03/05/18 07:40 Dose: 325 mg Atorvastatin Calcium (Lipitor) 20 mg PO HS [facility] Last Admin: 03/04/18 21:23 Dose: 20 mg Carvedilol (Coreg) 12.5 mg PO BID [facility] Last Admin: 03/05/18 07:40 Dose: 12.5 mg Dextrose/Water (Dextrose 50%) 25 gm SLOW IVP PRN PRN PRN Reason: Hypoglycemia Enoxaparin Sodium (Lovenox) 90 mg SC 0900 [facility] Famotidine (Pepcid) 20 mg PO 2100 [facility] Last Admin: 03/04/18 21:24 Dose: 20 mg Ferrous Sulfate (Feosol) 325 mg PO BID-WM [facility] Last Admin: 03/05/18 07:40 Dose: 325 mg Furosemide (Lasix) 20 mg SLOW IVP 0600,1400 [facility] Last Admin: 03/05/18 06:12 Dose: 20 mg Gabapentin (Neurontin) 300 mg PO BID [facility] Last Admin: 03/05/18 07:40 Dose: 300 mg Glucagon (Glucagon) 1 mg IM PRN PRN PRN Reason: Hypoglycemia Hydralazine HCl (Apresoline) 50 mg PO BID [facility] Last Admin: 03/05/18 07:40 Dose: 50 mg Insulin Glargine 12 units/ (Miscellaneous Medication) 0.12 mls @ 0 mls/hr SC BID [facility] Last Admin: 03/05/18 10:30 Dose: Not Given Dextrose/Water (D5w) 1,000 mls @ 0 mls/hr IV .Q0M PRN; As Directed PRN Reason: Hypoglycemia Insulin Human Lispro (Humalog) 0 units SC .MODERATE SLIDING SC PRN PRN Reason: Moderate Correctional Scale Insulin Human Lispro (Humalog) 0 units SC .BEDTIME SLIDING SC PRN PRN Reason: Bedtime Correctional Scale Isosorbide Mononitrate (Imdur) 60 mg PO BID [facility] Last Admin: 03/05/18 07:40 Dose: 60 mg Mometasone Furoate/Formoterol Fumar (Dulera 200 Mcg/5 Mcg Inhaler) 2 puff INH BID-RT [facility] Last Admin: 03/04/18 22:10 Dose: 2 puff Nitroglycerin (Nitrostat) 0.4 mg SL Q5MIN PRN PRN Reason: Chest Pain Nitroglycerin (Nitro-Bid 2% Ointment) 0.5 inch TOP Q8HR [facility] Last Admin: 03/05/18 06:12 Dose: 0.5 inch Ondansetron HCl (Zofran Odt) 4 mg PO Q6H PRN PRN Reason: Nausea/Vomiting Tamsulosin HCl (Flomax) 0.4 mg PO HS [facility] Last Admin: 03/04/18 21:23 Dose: 0.4 mg Zolpidem Tartrate (Ambien) 5 mg PO HSPRN PRN PRN Reason: Insomnia
[2018-03-05] MEDS: Mometasone/Formoterol 120 PUFF INHALER INH SCH ×2 (14:14→19:57)
[2018-03-05] MEDS: Famotidine 20 MG TAB PO SCH (21:13)
[2018-03-05] MEDS: Tamsulosin HCl 0.4 MG CAP PO SCH (21:14)
[2018-03-05] MEDS: Atorvastatin Calcium 20 MG TAB PO SCH (21:14)
--- NOTE | 2018-03-05 23:33 | PRG ---
DATE OF SERVICE: 03/05/2018 SUBJECTIVE: He was seen earlier today. Mr. Matt is doing quite well. He is not having any sign ificant problems. He denies any chest pain. He is alert. He has a sinus rhythm today. He is not h aving any new complaints. OBJECTIVE: VITAL SIGNS: Blood pressure of 158/70, heart rate 70 and regular. He is afebrile. His respiratory rate is approximately 18. CHEST: Clear. CARDIOVASCULAR: Reveals a regular rate and rhythm. He has no lower extremity edema. ABDOMEN: Soft and nontender. LABORATORY DATA: Shows hemoglobin 9.3, creatinine is 2.5 with a BUN of 47. I's and O's, he is negat tank 1025. IMPRESSION: 1. Non-ST segment elevation myocardial infarction. The patient remains stable at this time. 2. Congestive heart failure which is diastolic in nature. We will continue medical management. 3. Chronic kidney disease. This may be acute on chronic. This will continue to hopefully improve a nd he may need further intervention in the future once the renal function remains more stable. We wi ll continue to follow the patient with you. I reviewed his medications and would agree with the medi cations that were listed.
[2018-03-06] MEDS: Furosemide 20 MG/2 ML VIAL SLOW IVP SCH ×2 (05:03→13:48)
[2018-03-06] MEDS: Nitroglycerin 2% Ointment 1 INCH/1 GM Packet TOP SCH ×3 (05:03→20:34)
[2018-03-06 05:34] LABS: Anion Gap 8 mmol/L (10-20); BUN (Urea Nitrogen) 46 mg/dL (8.4-25.7); Calc. Creatinine Clearance 34 mL/min (70-130); Calcium 8.2 mg/dL (7.8-10.44); Carbon Dioxide 29 mmol/L (23-31); Chloride 106 mmol/L (98-107); Estimated GFR-MDRD 31; Glucose 145 mg/dL (83-110); Potassium 4.4 mmol/L (3.5-5.1); Sodium 139 mmol/L (136-145)
[2018-03-06] MEDS ORDERED: Enoxaparin Sodium 100 MG/ML SYRINGE SC SCH (09:00)
[2018-03-06] MEDS ORDERED: Enoxaparin Sodium 80 MG/0.8 ML SYRINGE SC SCH (09:00)
[2018-03-06] MEDS: Insulin Glargine 12 UNITS in Pre-Filled Syringe 1 EACH SC SCH ×2 (09:04→21:35)
[2018-03-06] MEDS: Ferrous Sulfate 325 MG TAB PO SCH ×2 (09:05→16:11)
[2018-03-06] MEDS: Gabapentin 300 MG CAP PO SCH ×2 (09:05→20:35)
[2018-03-06] MEDS: Carvedilol 25 MG TAB PO SCH ×2 (09:05→20:35)
[2018-03-06] MEDS: Aspirin 325 MG TAB PO SCH (09:05)
[2018-03-06] MEDS: hydrALAZINE 25 MG TAB PO SCH ×2 (09:05→20:35)
[2018-03-06] MEDS: Mometasone/Formoterol 120 PUFF INHALER INH SCH ×2 (09:14→19:43)
[2018-03-06] MEDS: cefTRIAXone\\ROCEPHIN 1 GM in Sodium Chloride 0.9% 100 ML IVPB SCH (12:41)
--- NOTE | 2018-03-06 14:37 | PRG ---
DATE OF SERVICE: 03/06/2018 SUBJECTIVE: A 72-year-old gentleman being seen for acute kidney injury. The patient denies any naus ea, vomiting, or chest pain. PHYSICAL EXAMINATION: GENERAL: The patient is awake and alert. VITAL SIGNS: Afebrile, pulse 76, breathing at 16, blood pressure 126/59. GENERAL APPEARANCE AND MENTAL STATUS: Fair. HEAD/NECK: Normocephalic. Atraumatic. EYES: EOMI. No deformity. EARS: Clear. No ulcers. NOSE: Intact. No lesions. MOUTH: Clear. No discharge. THROAT: Clear. No exudate. LUNGS: Clear. No crackles. CARDIAC: S1, S2. No rub. ABDOMEN: Benign. BS+. GENITALIA/RECTUM: Bernal absent. BACK/EXTREMITIES: Edema 0+ Ulcer- NEUROLOGICAL: Alert and motor intact. SKIN: Rash- Bruise- LYMPHATICS: Edema- Ulcer- LABORATORY DATA: Show hemoglobin 9.3 and creatinine 2.5. ASSESSMENT AND PLAN: 1. Acute kidney injury with chronic kidney disease, stage 3, stable. 2. Hypertension, stable. 3. Anemia, stable. I will sign off on this patient. Please reconsult as needed.
--- NOTE | 2018-03-06 15:45 | PDOC.CTH ---
<Verna Bray - Last Filed: 03/06/18 15:42> Cardiology Progress Note - Subjective The pt seen and examined. No overnight events. No cardiac complaints. - Objective Vital Signs Temp Pulse Resp BP Pulse Ox 03/06/18 11:51 64 16 126/59 L 95 03/06/18 09:05 71 03/06/18 08:58 98.3 F 71 17 146/66 H 93 L 03/06/18 04:37 97.9 F 61 18 145/64 H 94 L Admit Weight 211 lb Weight 202 lb 2 oz 03/05/18 03/06/18 03/07/18 06:59 06:59 06:59 Intake Total 900 720 Output Total 3550 2940 Balance -2650 -2220 - Physical Examination General/Neuro: alert & oriented x3 Neck: no JVD present Lungs: other: (diminished at bases) Heart: RRR Abdomen: soft Extremities: other: (No edema; Rt AKA) - Telemetry Telemetry Rhythm: SR - Labs Result Diagrams: 03/04/18 03:33 03/06/18 04:22 Troponin/CKMB CK-MB (CK-2) 1.8 ng/mL (0-6.6) 03/03/18 14:39 Troponin I 1.486 ng/mL (< 0.028) H* 03/03/18 20:48 - Assessment/Plan 1. NSTEMI with CAD and Hx of CABG in 2008 - Stable; medical tx only due to poor cardiac targets. On BBlocker, ASA, and Statin. Not on XAVIER/ARE due to hx of CKD. Cont. to monitor on tele 2. Acute diastolic HF - Stable with Lasix 20mg IV BID and BBlocker; not on XAVIER/ ARE due to hx of CKD. 3. HTN - stable 4. Hyperlipidemia - on Statin 5. DM type 2 - managed by PCP 6. COPD - stable 7. CKD stage 2 - slightly worsen today; managed by fur nailer 8. Chronic Anemia - managed by PCP 9. PVD with hx of Rt AKA MAR reviewed * Echo on 03/04/18 showed EF 45-50%, grade I diastolic dysfunction, mild-mod MR , mild TR, mod-severe dilated LA, LVH. Review of Systems - Review of Systems Constitutional: reports: no symptoms reported EENTM: reports: no symptoms reported Respiratory: reports: no symptoms reported Cardiac (ROS): reports: no symptoms reported ABD/GI: reports: no symptoms reported : reports: no symptoms reported <Marj Mccurdy - Last Filed: 03/06/18 21:38> Cardiology Progress Note - Objective Vital Signs Pulse Resp BP Pulse Ox 03/06/18 20:35 67 03/06/18 19:43 96 03/06/18 16:02 67 15 120/58 L 96 03/06/18 11:51 64 16 126/59 L 95 Admit Weight 211 lb Weight 202 lb 2 oz 03/05/18 03/06/18 03/07/18 06:59 06:59 06:59 Intake Total 900 720 Output Total 3550 2940 Balance -2650 -2220 - Labs Result Diagrams: 03/04/18 03:33 03/06/18 04:22 Troponin/CKMB CK-MB (CK-2) 1.8 ng/mL (0-6.6) 03/03/18 14:39 Troponin I 1.486 ng/mL (< 0.028) H* 03/03/18 20:48 - Assessment/Plan Pt. seen and eval. by me. I agree with the A/P by the CUTTING MACHINE TENDER DECORATIVE. We have discussed the plan.
--- NOTE | 2018-03-06 16:25 | PDOC.PN ---
- Subjective Encounter Start Date: 03/06/18 Encounter Start Time: 11:00 Patient is seen today, alert and oriented. No other Concenr snoted, His Chest pain is better, his UA was positive will send urine for culture. - Objective Resuscitation Status: Resuscitation Status FULL:Full Resuscitation MAR Reviewed: Yes Vital Signs & Weight: Vital Signs (12 hours) Temp Pulse Resp BP Pulse Ox 03/06/18 16:02 67 15 120/58 L 96 03/06/18 11:51 64 16 126/59 L 95 03/06/18 09:05 71 03/06/18 08:58 98.3 F 71 17 146/66 H 93 L 03/06/18 04:37 97.9 F 61 18 145/64 H 94 L Weight Admit Weight 211 lb Weight 202 lb 2 oz Most Recent Monitor Data Heart Rate from ECG 69 NIBP 158/72 NIBP BP-Mean 98 Respiration from ECG 22 SpO2 100 I&O: 03/05/18 03/06/18 03/07/18 06:59 06:59 06:59 Intake Total 900 720 Output Total 3550 2940 Balance -2650 -2220 Result Diagrams: 03/04/18 03:33 03/06/18 04:22 Additional Labs: Accuchecks 03/06/18 03/06/18 03/06/18 16:10 11:28 05:44 POC Glucose 149 H 139 H 120 H 03/05/18 20:43 POC Glucose 220 H Radiology Reviewed by me: Yes Phys Exam - Physical Examination HEENT: PERRLA, moist MMs Neck: no nodes, no JVD Respiratory: no wheezing, no rales Cardiovascular: RRR, no significant murmur Gastrointestinal: soft, non-tender Musculoskeletal: no edema Neurological: non-focal, normal sensation Lymphatic: no nodes Dx/Plan (1) NSTEMI (non-ST elevated myocardial infarction) Code(s): I21.4 - NON-ST ELEVATION (NSTEMI) MYOCARDIAL INFARCTION Status: Acute Comment: Cardiology following, will continue to Monitor, No chest pain today, Pt on lovenox 1mg/kg renal dosed. Aspirin/ BB/ Statin. No intervention per cardiology, Will closley Monitor. with do PT/oT evaaluition, (2) Acute diastolic CHF (congestive heart failure), NYHA class 3 Code(s): I50.31 - ACUTE DIASTOLIC (CONGESTIVE) HEART FAILURE Status: Acute Comment: Echo good EF, Continue on IV lasix, Will continue Home MEds. (3) Acute respiratory failure with hypoxia Code(s): J96.01 - ACUTE RESPIRATORY FAILURE WITH HYPOXIA Status: Resolved Comment: Will clsoley monitor.Continue lasix low dose. (4) coronary artery disease Status: Acute (5) Cardiorenal syndrome with renal failure Code(s): I13.10 - HYP HRT & CHR KDNY DIS W/O HRT FAIL, W STG 1-4/UNSP CHR KDNY; N19 - UNSPECIFIED KIDNEY FAILURE Status: Acute Comment: Improving renal fucntions with IV lasix, will closley Monitor, consulted nephrology. (6) Hyperkalemia Code(s): E87.5 - HYPERKALEMIA Status: Acute Comment: Resolved with kayxalate. - Plan cont current plan of care, PT/OT, social work msw, respiratory therapy, incentive spirometry, DVT proph w/heparin * . Review of Systems - Review of Systems Eyes: negative: Pain, Vision Change, Conjunctivae Inflammation, Eyelid Inflammation, Redness, Other ENT: negative: Ear Pain, Ear Discharge, Nose Pain, Nose Discharge, Nose Congestion, Mouth Pain, Mouth Swelling, Throat Pain, Throat Swelling, Other Respiratory: negative: Cough, Dry, Shortness of Breath, Hemoptysis, SOB with Excertion, Pleuritic Pain, Sputum, Wheezing Cardiovascular: negative: chest pain, palpitations, orthopnea, paroxysmal nocturnal dyspnea, edema, light headedness, other Gastrointestinal: negative: Nausea, Vomiting, Abdominal Pain, Diarrhea, Constipation, Melena, Hematochezia, Other Musculoskeletal: negative: Neck Pain, Shoulder Pain, Arm Pain, Back Pain, Hand Pain, Leg Pain, Foot Pain, Other - Medications/Allergies Allergies/Adverse Reactions: Allergies Allergy/AdvReac Type Severity Reaction Status Date / Time No Known Drug Allergies Allergy Verified 12/03/13 22:24 Medications: Current Medications Acetaminophen (Tylenol) 650 mg PO Q4H PRN PRN Reason: Headache/Fever or Pain Hydrocodone Bitart/Acetaminophen ([place] 5/325) 1 tab PO Q4H PRN PRN Reason: Moderate Pain (4-6) Last Admin: 03/05/18 00:34 Dose: 1 tab Aspirin (Aspirin) 325 mg PO DAILY [facility] Last Admin: 03/06/18 09:05 Dose: 325 mg Atorvastatin Calcium (Lipitor) 20 mg PO HS [facility] Last Admin: 03/05/18 21:14 Dose: 20 mg Carvedilol (Coreg) 12.5 mg PO BID [facility] Last Admin: 03/06/18 09:05 Dose: 12.5 mg Dextrose/Water (Dextrose 50%) 25 gm SLOW IVP PRN PRN PRN Reason: Hypoglycemia Famotidine (Pepcid) 20 mg PO 2100 [facility] Last Admin: 03/05/18 21:13 Dose: 20 mg Ferrous Sulfate (Feosol) 325 mg PO BID-WM [facility] Last Admin: 03/06/18 16:11 Dose: 325 mg Furosemide (Lasix) 20 mg SLOW IVP 0600,1400 [facility] Last Admin: 03/06/18 13:48 Dose: 20 mg Gabapentin (Neurontin) 300 mg PO BID [facility] Last Admin: 03/06/18 09:05 Dose: 300 mg Glucagon (Glucagon) 1 mg IM PRN PRN PRN Reason: Hypoglycemia Heparin Sodium (Porcine) (Heparin) 5,000 units SC BID [facility] Hydralazine HCl (Apresoline) 50 mg PO BID [facility] Last Admin: 03/06/18 09:05 Dose: 50 mg Insulin Glargine 12 units/ (Miscellaneous Medication) 0.12 mls @ 0 mls/hr SC BID [facility] Last Admin: 03/06/18 09:04 Dose: 0.12 mls Dextrose/Water (D5w) 1,000 mls @ 0 mls/hr IV .Q0M PRN; As Directed PRN Reason: Hypoglycemia Ceftriaxone Sodium 1 gm/ (Sodium Chloride) 100 mls @ 200 mls/hr IVPB 1200 [facility] Last Admin: 03/06/18 12:41 Dose: 100 mls Insulin Human Lispro (Humalog) 0 units SC .MODERATE SLIDING SC PRN PRN Reason: Moderate Correctional Scale Last Admin: 03/05/18 21:15 Dose: 2 unit Insulin Human Lispro (Humalog) 0 units SC .BEDTIME SLIDING SC PRN PRN Reason: Bedtime Correctional Scale Isosorbide Mononitrate (Imdur) 60 mg PO BID [facility] Last Admin: 03/06/18 09:05 Dose: 60 mg Mometasone Furoate/Formoterol Fumar (Dulera 200 Mcg/5 Mcg Inhaler) 2 puff INH BID-RT [facility] Last Admin: 03/06/18 09:14 Dose: 2 puff Nitroglycerin (Nitrostat) 0.4 mg SL Q5MIN PRN PRN Reason: Chest Pain Nitroglycerin (Nitro-Bid 2% Ointment) 0.5 inch TOP Q8HR [facility] Last Admin: 03/06/18 13:49 Dose: 0.5 inch Ondansetron HCl (Zofran Odt) 4 mg PO Q6H PRN PRN Reason: Nausea/Vomiting Tamsulosin HCl (Flomax) 0.4 mg PO HS [facility] Last Admin: 03/05/18 21:14 Dose: 0.4 mg Zolpidem Tartrate (Ambien) 5 mg PO HSPRN PRN PRN Reason: Insomnia
[2018-03-06] MEDS: Tamsulosin HCl 0.4 MG CAP PO SCH (20:34)
[2018-03-06] MEDS: Atorvastatin Calcium 20 MG TAB PO SCH (20:35)
[2018-03-06] MEDS: Famotidine 20 MG TAB PO SCH (20:35)
[2018-03-06] MEDS: Heparin 5,000 UNITS/ML VIAL SC SCH (20:36)
[2018-03-07] MEDS: Furosemide 20 MG/2 ML VIAL SLOW IVP SCH ×2 (05:52→13:52)
[2018-03-07] MEDS: Nitroglycerin 2% Ointment 1 INCH/1 GM Packet TOP SCH ×3 (05:54→21:00)
[2018-03-07] MEDS: Mometasone/Formoterol 120 PUFF INHALER INH SCH ×2 (08:42→19:16)
[2018-03-07] MEDS: Ferrous Sulfate 325 MG TAB PO SCH ×2 (08:46→16:39)
[2018-03-07] MEDS: hydrALAZINE 25 MG TAB PO SCH ×2 (08:47→20:54)
[2018-03-07] MEDS: Carvedilol 25 MG TAB PO SCH ×2 (08:47→20:55)
[2018-03-07] MEDS: Gabapentin 300 MG CAP PO SCH ×2 (08:48→20:55)
[2018-03-07] MEDS: Aspirin 325 MG TAB PO SCH (08:48)
[2018-03-07] MEDS: Insulin Glargine 12 UNITS in Pre-Filled Syringe 1 EACH SC SCH ×2 (08:49→20:59)
[2018-03-07] MEDS: Heparin 5,000 UNITS/ML VIAL SC SCH ×2 (08:50→20:55)
[2018-03-07 10:35] LABS: Anion Gap 12 mmol/L (10-20); BUN (Urea Nitrogen) 42 mg/dL (8.4-25.7); Calc. Creatinine Clearance 32 mL/min (70-130); Calcium 8.6 mg/dL (7.8-10.44); Carbon Dioxide 27 mmol/L (23-31); Chloride 105 mmol/L (98-107); Estimated GFR-MDRD 30; Glucose 120 mg/dL (83-110); Potassium 4.3 mmol/L (3.5-5.1); Sodium 140 mmol/L (136-145)
--- NOTE | 2018-03-07 10:57 | PRG ---
DATE OF SERVICE: 03/07/2018 SUBJECTIVE: A 72-year-old male being seen for acute kidney injury. The patient denies any nausea, v omiting or chest pain. PHYSICAL EXAMINATION: GENERAL: Patient is awake, alert. VITAL SIGNS: Afebrile, pulse 66, breathing 16, blood pressure 134/66. OBJECTIVE: See above. Awake, alert, in no acute distress. GENERAL APPEARANCE AND MENTAL STATUS: Fair. HEAD/NECK: Normocephalic. Atraumatic. EYES: EOMI. No deformity. EARS: Clear. No ulcers. NOSE: Intact. No lesions. MOUTH: Clear. No discharge. THROAT: Clear. No exudate. LUNGS: Clear. No crackles. CARDIAC: S1, S2. No rub. ABDOMEN: Benign. BS+. GENITALIA/RECTUM: Bernal absent. BACK/EXTREMITIES: Edema 0+ Ulcer- NEUROLOGICAL: Alert and motor intact. SKIN: Rash- Bruise- LYMPHATICS: Edema- Ulcer- LABORATORY: Hemoglobin 9.3, creatinine was 2.5 yesterday, today is pending. ASSESSMENT AND RECOMMENDATIONS: 1. Chronic kidney disease stage 3. 2. Stable hypertension, stable. 3. Anemia, stable. 4. Acute kidney injury, stable. No indication for dialysis. We will follow renal function closely. I will sign off on this patient. Please reconsult as needed.
[2018-03-07] MEDS: cefTRIAXone\\ROCEPHIN 1 GM in Sodium Chloride 0.9% 100 ML IVPB SCH (12:06)
--- NOTE | 2018-03-07 13:19 | PDOC.PN ---
- Subjective Encounter Start Date: 03/07/18 Encounter Start Time: 11:00 Patient is seen today, alert and oriented. No other Concerns noted. Pt has Klebsiella growing. - Objective Resuscitation Status: Resuscitation Status FULL:Full Resuscitation MAR Reviewed: Yes Vital Signs & Weight: Vital Signs (12 hours) Temp Pulse Resp BP Pulse Ox 03/07/18 12:20 98.9 F 69 17 139/63 98 03/07/18 08:47 66 03/07/18 08:40 98.1 F 66 14 134/63 94 L 03/07/18 03:43 98.6 F 66 16 134/66 96 Weight Admit Weight 211 lb Weight 196 lb 1 oz Most Recent Monitor Data Heart Rate from ECG 69 NIBP 158/72 NIBP BP-Mean 98 Respiration from ECG 22 SpO2 100 I&O: 03/06/18 03/07/18 03/08/18 06:59 06:59 06:59 Intake Total 720 Output Total 2940 1700 Balance -2220 -1700 Result Diagrams: 03/04/18 03:33 03/07/18 10:06 Additional Labs: Accuchecks 03/07/18 03/07/18 03/06/18 11:48 05:57 21:22 POC Glucose 109 117 H 142 H 03/06/18 16:10 POC Glucose 149 H Radiology Reviewed by me: Yes Phys Exam - Physical Examination HEENT: PERRLA, moist MMs Neck: no nodes, no JVD Respiratory: no wheezing, no rales Cardiovascular: RRR, no significant murmur Gastrointestinal: soft, non-tender Musculoskeletal: no edema, pulses present Neurological: normal sensation Lymphatic: no nodes Dx/Plan (1) Acute UTI Code(s): N39.0 - URINARY TRACT INFECTION, SITE NOT SPECIFIED Status: Acute Comment: PT has UTI, urine Culture growing klebsiela/Emnterobacter, pending senstivities. PT is on Rocephin. (2) NSTEMI (non-ST elevated myocardial infarction) Code(s): I21.4 - NON-ST ELEVATION (NSTEMI) MYOCARDIAL INFARCTION Status: Acute Comment: Cardiology following, will continue to Monitor, No chest pain today, Pt on lovenox 1mg/kg renal dosed. Aspirin/ BB/ Statin. No intervention per cardiology, Will closley Monitor. with do PT/oT evaaluition, (3) Acute diastolic CHF (congestive heart failure), NYHA class 3 Code(s): I50.31 - ACUTE DIASTOLIC (CONGESTIVE) HEART FAILURE Status: Acute Comment: Echo good EF, Continue on IV lasix, Will continue Home MEds. (4) Acute respiratory failure with hypoxia Code(s): J96.01 - ACUTE RESPIRATORY FAILURE WITH HYPOXIA Status: Resolved Comment: Will clsoley monitor.Continue lasix low dose. (5) coronary artery disease Status: Acute (6) Cardiorenal syndrome with renal failure Code(s): I13.10 - HYP HRT & CHR KDNY DIS W/O HRT FAIL, W STG 1-4/UNSP CHR KDNY; N19 - UNSPECIFIED KIDNEY FAILURE Status: Acute Comment: Improving renal fucntions with IV lasix, will laurelley Monitor, consulted nephrology. (7) Hyperkalemia Code(s): E87.5 - HYPERKALEMIA Status: Acute Comment: Resolved with kayxalate. - Plan cont current plan of care, PT/OT, social services counselor, incentive spirometry, out of bed/ambulate, DVT proph w/lovenox * .
[2018-03-07] MEDS: Famotidine 20 MG TAB PO SCH (20:54)
[2018-03-07] MEDS: Atorvastatin Calcium 20 MG TAB PO SCH (20:55)
[2018-03-07] MEDS: Tamsulosin HCl 0.4 MG CAP PO SCH (20:55)
[2018-03-08] MEDS: Furosemide 20 MG/2 ML VIAL SLOW IVP SCH ×2 (06:03→13:19)
[2018-03-08] MEDS: Nitroglycerin 2% Ointment 1 INCH/1 GM Packet TOP SCH ×2 (06:03→13:19)
[2018-03-08] MEDS: Mometasone/Formoterol 120 PUFF INHALER INH SCH (07:50)
[2018-03-08] MEDS: Carvedilol 25 MG TAB PO SCH (09:09)
[2018-03-08] MEDS: Aspirin 325 MG TAB PO SCH (09:09)
[2018-03-08] MEDS: hydrALAZINE 25 MG TAB PO SCH (09:09)
[2018-03-08] MEDS: Gabapentin 300 MG CAP PO SCH (09:10)
[2018-03-08] MEDS: Ferrous Sulfate 325 MG TAB PO SCH ×2 (09:10→16:08)
[2018-03-08] MEDS: Heparin 5,000 UNITS/ML VIAL SC SCH (09:11)
[2018-03-08] MEDS: Insulin Glargine 12 UNITS in Pre-Filled Syringe 1 EACH SC SCH (09:11)
[2018-03-08 11:07] LABS: #Eosinphils 0.3 thou/uL (0.0-0.7); #Lymphocytes 1.4 thou/uL (1.20-3.40); #Monocytes 0.8 thou/uL (0.11-0.59); #Neutrophils 4.6 thou/uL (1.40-6.50); %Basophils 0.4 % (0.0-1.0); %Eosinophils 4.3 % (0.0-10.0); %Lymphocytes 19.3 % (21.0-51.0); %Monocytes 11.7 % (0.0-10.0); %Neutrophils 64.3 % (42.0-75.0); Hemoglobin 11.7 g/dL (14.0-18.0); Mean Corpuscular HGB CONC 31.2 g/dL (32.0-36.0); Mean Corpuscular Hemoglobin 26.6 pg (27.0-31.0); Mean Corpuscular Volume 85.2 fl (80.0-94.0); Mean Platelet Volume 8.8 fL (7.4-10.4); Platelet Count 234 thou/uL (130-400); RBC Distribution Width 14.9 % (11.5-14.5); White Blood Cell (WBC) Count 7.2 thou/uL (4.8-10.8)
--- NOTE | 2018-03-08 15:25 | DIS ---
DATE OF ADMISSION: 03/03/2018 DATE OF DISCHARGE: 03/08/2018 ADMITTING DIAGNOSIS: Idm-EH-daqsjujkn myocardial infarction. DISCHARGE DIAGNOSES: Sxm-SV-gvpckljdq myocardial infarction. SECONDARY DIAGNOSES: 1. Acute congestive heart failure. 2. Acute hyperkalemia. 3. Acute kidney injury on chronic kidney disease. 4. Type 2 diabetes mellitus. 5. Morbid obesity. 6. Acute hypoxic respiratory failure. 7. Acute urinary tract infection. CONSULTANTS INVOLVED IN THE CARE: Cardiology, Dr. Cummins; Cardiothoracic, Dr. Dominik Solano; and Nep hrology, Dr. Neri and Dr. Be. HISTORY OF PRESENT ILLNESS AND HOSPITAL COURSE: In brief, this is a 72-year-old -Polish mal e, who is a resident of a group home, has a very poor cardiac history with a history of CABG and po or coronaries. The patient was admitted with acute chest pain with elevated troponins and also eleva breanna potassium. Patient was admitted to the ICU for close monitoring and was seen by Cardiology, as t he patient was a very poor candidate for any interventions, because of the multiple stents in the pas t. The patient was closely monitored and was encouraged medical management only. He had initial adi picion for a pulmonary embolism, so left lower extremity ultrasound was done, which came back negativ e. So, the patient was transferred to the floor and was closely monitored since then. He was noted to have a urinary tract infection on the day of admission, which started growing urine cultures that were positive for Klebsiella, which were resistant to Rocephin. So, on the day of discharge, it was changed to levofloxacin. The patient was discharged back to group home in stable condition. PHYSICAL EXAMINATION: On the day of discharge, VITAL SIGNS: Blood pressure is 109/55, heart rate is 18, saturation is 97%. GENERAL: The patient is moderately built, moderately nourished, does not appear to be in acute distr ess. CARDIOVASCULAR: S1 and S2 normal. No murmurs, no rubs, no gallops. LUNGS: Bilateral air entry was equal. No wheezing, no crackles. ABDOMEN: Soft, nontender, no guarding, no rebound tenderness. Bowel sounds normal. MUSCULOSKELETAL: No calf tenderness. Mild pedal edema was noted in the left lower extremity. Patie nt has right below-knee amputation. DISCHARGE MEDICATIONS: 1. Albuterol inhaler. 2. Calcitriol 0.25 mcg p.o. daily. 3. Calcium carbonate. 4. Cholecalciferol 1000 units p.o. daily. 5. Fluoxetine 60 mg p.o. daily. 6. Fluticasone 2 sprays in each naris at bedtime. 7. Omeprazole 40 mg p.o. daily. 8. Aspirin 81 mg p.o. daily. 9. Coreg 25 mg p.o. b.i.d. 10. Gabapentin 300 mg p.o. b.i.d. 11. Hydralazine 50 mg p.o. t.i.d. 12. Isosorbide 60 mg p.o. daily. 13. Levemir 22 units subcu b.i.d. 14. Nitroglycerin. 15. Simvastatin 40 mg p.o. at bedtime. 16. Tamsulosin 0.4 mg p.o. at bedtime. 17. Levofloxacin 250 mg p.o. daily. 18. Lasix 20 mg p.o. daily. DISCHARGE INSTRUCTIONS: Continue activity as tolerated. Advised to follow up with Cardiology in 1-2 weeks. Advised to follow up with primary care physician in 1 week. Advised to continue with a card iac diet. I spent 35 minutes with this patient on the day of discharge.
[2018-03-08 16:18] VITALS: BP 124/60; TEMP 98.8
== END 2018-03-08 19:32 | DRG 280 ==
LOC: ERS 13:52 → CCU 15:50 → 2NO 03-05 18:32
PROVIDERS: ADMIT Family Medicine; ATTEND Family Medicine
DX: I21.4 Non-ST elevation (NSTEMI) myocardial infarction (principal); J96.01 Acute respiratory failure with hypoxia; I50.31 Acute diastolic (congestive) heart failure; N17.9 Acute kidney failure, unspecified; N39.0 Urinary tract infection, site not specified; I13.0 Hypertensive heart and chronic kidney disease with heart failure and stage 1 through stage 4 chronic kidney disease, or unspecified chronic kidney disease; E87.2 Acidosis; N18.4 Chronic kidney disease, stage 4 (severe); E87.5 Hyperkalemia; E66.01 Morbid (severe) obesity due to excess calories; Z79.82 Long term (current) use of aspirin; Z95.5 Presence of coronary angioplasty implant and graft; D64.9 Anemia, unspecified; J44.9 Chronic obstructive pulmonary disease, unspecified; I73.9 Peripheral vascular disease, unspecified; Z89.511 Acquired absence of right leg below knee; Z95.1 Presence of aortocoronary bypass graft; E11.22 Type 2 diabetes mellitus with diabetic chronic kidney disease; Z87.891 Personal history of nicotine dependence; I25.110 Atherosclerotic heart disease of native coronary artery with unstable angina pectoris; E11.42 Type 2 diabetes mellitus with diabetic polyneuropathy; Z79.4 Long term (current) use of insulin; B96.1 Klebsiella pneumoniae [K. pneumoniae] as the cause of diseases classified elsewhere; Z16.39 Resistance to other specified antimicrobial drug
CPT/HCPCS: 36415; 36416; 71045; 80048; 80053; 80061; 81003; 81015; 82553; 83880; 84484; 85025; 87077; 87086; 87186; 93005; 93306; 94760; 96374; G8978-GP-CL; G8979-GP-CJ; G8987-GO-CK; G8988-GO-CI; J0696; J1644; J1650; J1940; J1956; J7050